=== PATIENT | male | born 1970 | race Two or more races ===

== ENCOUNTER 2023-11-15 01:06 | Inpatient (IN) | payer OTHER ==
[2023-11-15] MEDS ORDERED: KETOROLAC TROMETHAMINE 30 MG/1 ML VIAL ONE (01:29)
[2023-11-15] MEDS: KETOROLAC TROMETHAMINE 30 MG/1 ML VIAL IVPUSH ONE (01:32)
[2023-11-15] MEDS ORDERED: ACETAMINOPHEN INJECTION 100 ML IVPB ONE (01:42)
[2023-11-15] MEDS: ACETAMINOPHEN 1000 MG/100 ML BAG IVPB ONE (01:46)
[2023-11-15 02:27] LABS: BASO % 0.8 % (0-2.0); EOS % 7.7 % (0-4.5); HEMATOCRIT 41.8 % (35.4-49); HEMOGLOBIN 14.1 GM/dL (11.7-16.9); LYMPH % 17.6 % (8-40); MCH 29.9 pg (25.7-33.7); MCHC 33.7 g/dl (32.0-35.9); MEAN CELL VOLUME 88.6 fl (80-96); MEAN PLT VOLUME 10.5 fl (7.5-11.1); MONO % 4.4 % (3.8-10.2); NEUT % 69.5 % (42.8-82.8); PLATELET COUNT 166 10^3/uL (134-434); RBC 4.72 M/mm3 (4.00-5.60); RDW 14.6 % (11.9-15.9)
[2023-11-15 02:28] LABS: URINE APPEARANCE CLEAR; URINE BILIRUBIN NEGATIVE (NEGATIVE); URINE COLOR YELLOW; URINE GLUCOSE (UA) NEGATIVE (NEGATIVE); URINE KETONE NEGATIVE (NEGATIVE); URINE LEUK ESTERASE NEGATIVE (NEGATIVE); URINE NITRITE NEGATIVE (NEGATIVE); URINE PROTEIN NEGATIVE (NEGATIVE); URINE UROBILINOGEN 0.2 mg/dL (0.2-1.0)
[2023-11-15 02:35] LABS: INR 0.96 (0.83-1.09); PROTHROMBIN TIME (PATIENT) 11.1 SEC (9.7-13.0)
[2023-11-15 02:48] LABS: POTASSIUM 3.5 mmol/L (3.5-5.1)
[2023-11-15 02:50] LABS: CALCIUM 9.1 mg/dL (8.5-10.1)
[2023-11-15 02:51] LABS: ALBUMIN 3.7 g/dl (3.4-5.0); BLOOD UREA NITROGEN 20.4 mg/dL (7-18)
[2023-11-15 02:55] LABS: BILIRUBIN,TOTAL 0.3 mg/dL (0.2-1); TOT PROT 7.3 g/dl (6.4-8.2)
[2023-11-15] MEDS ORDERED: ceFAZolin SODIUM 1 GM VIAL ONE (03:28)
[2023-11-15] MEDS: SODIUM CHLORIDE 1,000 ML IV SCH (03:36)
[2023-11-15] MEDS: CEFAZOLIN 1 GM in DEXTROSE 5%-WATER - 50 ML IVPB ONE (03:37)
[2023-11-15 04:21] VITALS: BMI 24.7
[2023-11-15] MEDS: ACETAMINOPHEN 1000 MG/100 ML BAG IVPB PRN (10:58)
[2023-11-15] MEDS: LACTATED RINGERS SOLUTION 1,000 ML/1,000 ML INFUS.BAG IV SCH (11:45)
[2023-11-15] MEDS: FAMOTIDINE 20 MG/50 ML IVPB 20 MG/50 ML MG IVPB ONE (12:00)
[2023-11-16] MEDS: HEPARIN NA (PORCINE) 5,000 UNITS/ML 1ML VIAL SQ SCH (06:38)
[2023-11-16 09:25] LABS: HEMATOCRIT 41.1 % (35.4-49); HEMOGLOBIN 13.5 GM/dL (11.7-16.9); MCH 29.6 pg (25.7-33.7); MCHC 32.7 g/dl (32.0-35.9); MEAN CELL VOLUME 90.4 fl (80-96); MEAN PLT VOLUME 10.8 fl (7.5-11.1); PLATELET COUNT 152 10^3/uL (134-434); RBC 4.55 M/mm3 (4.00-5.60); RDW 14.8 % (11.9-15.9); WHITE BLOOD COUNT 6.5 K/mm3 (4.0-10.0)
[2023-11-16 12:30] LABS: POTASSIUM 4.4 mmol/L (3.5-5.1)
[2023-11-16 12:33] LABS: CALCIUM 8.6 mg/dL (8.5-10.1)
[2023-11-16 12:34] LABS: ALBUMIN 3.1 g/dl (3.4-5.0); BLOOD UREA NITROGEN 11.4 mg/dL (7-18)
[2023-11-16 12:37] LABS: CREATININE 0.9 mg/dL (0.55-1.3)
[2023-11-16 12:39] LABS: BILIRUBIN,TOTAL 0.5 mg/dL (0.2-1)
[2023-11-16] MEDS: ACETAMINOPHEN 325 MG TABLET (FP) PO PRN (17:22)
[2023-11-17 06:42] VITALS: RESP 18
[2023-11-17 09:51] LABS: HEMATOCRIT 40.9 % (35.4-49); HEMOGLOBIN 13.7 GM/dL (11.7-16.9); MCH 29.9 pg (25.7-33.7); MCHC 33.5 g/dl (32.0-35.9); MEAN CELL VOLUME 89.5 fl (80-96); MEAN PLT VOLUME 10.7 fl (7.5-11.1); PLATELET COUNT 159 10^3/uL (134-434); RBC 4.57 M/mm3 (4.00-5.60); RDW 14.6 % (11.9-15.9); WHITE BLOOD COUNT 6.3 K/mm3 (4.0-10.0)
[2023-11-17 09:57] LABS: CALCIUM 8.1 mg/dL (8.5-10.1)
[2023-11-17 09:58] LABS: ALBUMIN 3.3 g/dl (3.4-5.0); BLOOD UREA NITROGEN 12.2 mg/dL (7-18)
[2023-11-17 10:01] LABS: BILIRUBIN,TOTAL 0.4 mg/dL (0.2-1)
[2023-11-17 10:02] LABS: TOT PROT 6.4 g/dl (6.4-8.2)
[2023-11-17 10:10] VITALS: BP 116/68; PULSE 57; TEMP 98.6
[2023-11-17 10:26] LABS: ANISOCYTOSIS 0; MACROCYTOSIS 0
== END 2023-11-17 11:20 | disposition home or self-care (01) | DRG 247 ==
LOC: FER 01:06 → FM/S 03:49 → OBSVTOIN 11-16 09:51 → FM/S 11-16 20:17
PROVIDERS: ADMIT Internal Medicine
DX: K56.609 Unspecified intestinal obstruction, unspecified as to partial versus complete obstruction (principal); N20.0 Calculus of kidney; D72.829 Elevated white blood cell count, unspecified; R73.03 Prediabetes
CPT/HCPCS: 0241U-QW; 36415; 71045-TC-FY; 74019-TC-FY; 74176-TC; 80053; 81003; 83690; 85025; 85027; 85610; 93005; 99285-25; G0378; J0131; J1644